=== PATIENT | male | born 1985 | race Caucasian/White ===

== ENCOUNTER 2024-07-11 06:08 | Emergency (ER) | payer BC, SELFPAY ==
[2024-07-11 06:13] VITALS: BP 143/81
--- NOTE | 2024-07-11 06:49 | ED.GENMED ---
History of Present Illness
General
Chief Complaint: Chest Pain
Source: patient
Exam Limitations: none
Time Seen by Provider: 07/11/24 06:38
History of Present Illness
History of Present Illness:
38-year-old male presents with intermittent episodes of relatively sharp localized chest pain. At times associated with a skipped heartbeat. This is been going on for a few days. Under significant work stress. No pleuritic pain no radiation to
the arm neck or back. No exertional component. Patient gets up at 330 every morning exercises intently and has had no issues with this. No syncope.
Past History
Past History
ED Past Medical History: Asthma and GERD; Negative HTN, Hypercholesterolemia or NIDDM
ED Past Surgical History: Appendectomy
Social History
Tobacco: Non-smoker
Alcohol: Occasional
Drug: None
Personal:
Living: with family
Employment: Employed
Family History
Family History: Cancer (colon)
Review of Systems
Review of Systems
All Other Systems: Not applicable
Constitutional: Denies fever
Respiratory: Reports trouble breathing
Cardiac: Denies syncope
Phy Exam
Physical Exam
Physical Exam:
GENERAL: Alert and oriented in no apparent distress
EYE: Orbits normal.
NECK: Supple, no thyroid palpable
ENT: Pharynx without erythema
CARDIAC: Regular rate and rhythm without any obvious murmurs.
LUNGS: Clear breath sounds,normal
ABDOMEN: Soft, without focal tenderness or distention
NEUROLOGICAL: Alert and oriented , grossly non-focal
SKIN: Warm and dry, no rash or lesion, no discoloration, skin intact.
MUSCULOSKELETAL: No edema,no deformity.Good color
PSYCH: Normal and appropriate interaction. Mildly anxious
Scores
Heart Score for Chest Pain Patients
STEMI patient?: No
History: Slightly or Non-Suspicious
ECG: Normal
Age: </= 45 years
Risk Factors: No Risk Factors
Troponin: </= Normal Limit
Heart Score for Chest Pain Patients: 0
Heart Score Risk: 2.5% MACE over next 6 weeks
Course
Orders/Labs/Results
Orders:
Orders
07/11/24 06:10
EKG [Electrocardiogram (*1)] Urgent
Reason for Study: Chest Pain
EKG- Treatment ONCE
07/11/24 06:48
Cardiac Monitoring- Treatment ONCE
IV Insert/Care/Rem.- Treatment PRN
07/11/24 06:49
CR Chest - 2 Views Urgent
Comment:
Reason For Exam: Chest pain
07/11/24 06:55
Basic Metabolic Panel Urgent
Complete Blood Count/With Diff Urgent
D-Dimer Urgent
Troponin I Urgent
Abnormal Lab Results
07/11/24
06:55
WBC 4.5 L 10^3/uL
(4.8-10.8)
RBC 4.66 L 10^6/uL
(4.70-6.10)
MCH 32.4 H pg
(27.0-31.0)
BUN 28 H mg/dl
(9-20)
Glucose 114 H mg/dl
(70-99)
07/11/24 06:55
07/11/24 06:55
Vital Signs
Initial and Last Documented VS:
Initial Vital Signs
Temp Pulse Resp BP Pulse Ox
97.7 F 77 14 143/81 100
07/11/24 06:13 07/11/24 06:13 07/11/24 06:13 07/11/24 06:13 07/11/24 06:13
Last Documented Vital Signs
Temp Pulse Resp BP Pulse Ox
97.7 F 72 16 127/79 99
07/11/24 06:13 07/11/24 08:15 07/11/24 08:15 07/11/24 08:00 07/11/24 08:15
*Radiology
Radiology exam reviewed: preliminary read by ED provider (Negative)
*Pulse Oximetry
Patient hypoxic: no
*EKG
Interpreted by ED Provider?: Yes
Interpretation: normal
Comparison EKG: no changes
Heart Rate: 65
Rate: normal
Rhythm: sinus
[place]: normal axis
Interval: normal interval
QRS Pattern: normal QRS
Ischemia: no ischemia
*Critical Care Note
Total Time (30-74mins, 75-104mins- exclusive of procedures): Not Applicable
Update Note
Update Note:
Patient is remained stable and nontoxic. No cardiac risk factors. Atypical pain. Discharged to follow-up
ED Attending Note
-
Portions of this chart may have been created with voice recognition software.� Occasional wrong word or��sound alike� substitutions may have occurred due to the inherent limitations of voice recognition software.
Discharge Plan
Departure
Patient Disposition: Home (Routine Discharge)
Date of Disposition: 07/11/24
Time of Disposition: 08:36
Patient with high blood pressure during this ER visit?: Yes
Discharge Problem:
Chest pain/palpitations
Instructions: Chest Pain PCP Follow Up, BLOOD PRESSURE
Prescriptions:
No Action
cetirizine 10 MG tablet
10 mg PO DAILY
Saccharomyces boulardii 250 MG capsule
500 mg PO BID
fluticasone propionate 1 SPRAY spray,suspension
1 spray intranasal DAILY
lansoprazole [Prevacid] 30 MG capsule,delayed release(DR/EC)
30 mg PO DAILY
amoxicillin-pot clavulanate 1 TABLET tablet
1 tab PO Q12 Qty: 28 0RF
Referrals:
Mazin Hunter MD [Family Provider] - Follow up in 2-3 days
Interventions
Interventions:
*Risk Screen - Suicide Last Done: 07/11/24 06:13
*Neglect/Abuse Screening Last Done: 07/11/24 06:45
ED- Fall Risk Assessment Last Done: 07/11/24 06:45
*ED COVID-19 Vaccine History Last Done: 07/11/24 07:05
*Nursing Disposition Last Done: 07/11/24 08:55
ED- Cardiac Assessment Last Done: 07/11/24 06:43
Discharge Date and Time
Discharge Date/Time: 07/11/24 08:56
Print Language: URDU
[2024-07-11 07:03] VITALS: BP 120/79
[2024-07-11 07:05] VITALS: BMI 21.9
[2024-07-11 07:11] LABS: % Basophils 1.3 % (0-2); % Eosinophils 2.9 % (0-6); % Immature Granulocytes 0.4 % (0-0.5); % Lymphocytes 39.7 % (20.5-51.1); % Neutrophils 48.7 % (42.2-75.2); Absolute Basophils 0.1 10^3/uL (0-0.2); Absolute Eosinophils 0.1 10^3/uL (0-0.7); Absolute Lymphocytes 1.8 10^3/uL (1.2-3.4); Absolute Monocytes 0.3 10^3/uL (0.1-0.6); Absolute Neutrophils 2.2 10^3/uL (1.4-6.5); Hematocrit 42.2 % (39.0-52.0); Hemoglobin 15.1 g/dL (13.0-18.0); Mean Corp Hgb Conc. 35.8 g/dL (33.0-37.0); Mean Corpuscular Hgb 32.4 pg (27.0-31.0); Mean Corpuscular Volume 90.6 fL (80.0-94.0); Mean Platelet Volume 9.4 fL (7.4-10.4); Nucleated Red Blood Cells % 0 % (-); Platelet Count 258 10^3/uL (130-400); Red Blood Cell Count 4.66 10^6/uL (4.70-6.10); Red Cell Dist. Width 13.2 % (11.5-14.5); White Blood Cell Count 4.5 10^3/uL (4.8-10.8)
[2024-07-11 07:28] LABS: Blood Urea Nitrogen 28 mg/dl (9-20); Calcium 9.8 mg/dl (8.4-10.2); Carbon Dioxide 26 mmol/L (22-30); Chloride 103 mmol/L (98-107); Estimated Creatinine Clearance 114 ml/min; Glucose 114 mg/dl (70-99); Potassium 4.6 mmol/L (3.5-5.1); Sodium 139 mmol/L (135-145); eGFR > 60.00
[2024-07-11 07:37] LABS: Troponin I < 0.012 ng/ml
[2024-07-11 07:57] LABS: D-Dimer < 0.27 ug/mlFEU (0.00-0.50)
[2024-07-11 08:00] VITALS: BP 127/79
== END 2024-07-11 08:56 | disposition home or self-care (01) ==
LOC: EMR 06:08
PROVIDERS: EMERGENCY PHYSICIAN Emergency Medicine; FAMILY PHYSICIAN Family Medicine
DX: R07.89 Other chest pain (principal); R00.2 Palpitations; J45.909 Unspecified asthma, uncomplicated; K21.9 Gastro-esophageal reflux disease without esophagitis; Z90.49 Acquired absence of other specified parts of digestive tract
CPT/HCPCS: 99285; 71046; 80048; 84484; 85025; 85379; 93005